=== PATIENT | female | born 1995 | race Caucasian/White ===

== ENCOUNTER 2018-07-30 11:27 | Emergency (ER) | payer SELFPAY ==
[2018-07-30 12:10] LABS: ABSOLUTE EOSINOPHILS # (AUTO) 0.1 10^3/uL (0.0-0.6); ABSOLUTE LYMPHOCYTES (AUTO) 2.7 10^3/uL (0.5-4.7); ABSOLUTE MONOCYTES (AUTO) 0.4 10^3/uL (0.1-1.4); ABSOLUTE NEUT (AUTO) 8.2 10^3/uL (1.7-8.2); BASOPHILS % (AUTO) 0.3 % (0-2); EOSINOPHILS % (AUTO) 0.6 % (0-6); HEMATOCRIT 39.1 % (36.0-47.0); HEMOGLOBIN 13.4 g/dL (12.0-15.5); LYMPHOCYTES % (AUTO) 23.7 % (13-45); MEAN CORPUSCULAR HEMOGLOBIN 28.6 pg (27.0-33.4); MEAN CORPUSCULAR HGB CONC 34.3 g/dL (32.0-36.0); MEAN CORPUSCULAR VOLUME 83 fl (80-97); MONOCYTES % (AUTO) 3.5 % (3-13); PLATELET COUNT 315 10^3/uL (150-450); RED CELL DISTRIBUTION WIDTH 13.2 % (11.5-14.0); SEGMENTED NEUTROPHILS % (AUTO) 71.9 % (42-78); TOTAL CELLS COUNTED % (AUTO) 100 %; WHITE BLOOD COUNT 11.4 10^3/uL (4.0-10.5)
[2018-07-30 12:14] LABS: APPEARANCE,URINE CLOUDY; BILIRUBIN,URINE NEGATIVE (NEGATIVE); COLOR,URINE YELLOW; GLUCOSE, URINE NEGATIVE (NEGATIVE); KETONES,URINE NEGATIVE (NEGATIVE); LEUKOCYTE ESTERASE,URINE SMALL (NEGATIVE); NITRITE,URINE NEGATIVE (NEGATIVE); PROTEIN,URINE NEGATIVE (NEGATIVE); URINE SPECIFIC GRAVITY 1.024; UROBILINOGEN,URINE NEGATIVE mg/dL (<2.0)
--- NOTE | 2018-07-30 12:26 | ER Document Report ---
ED General - General Chief Complaint: Vaginal Bleeding Stated Complaint: VAGINAL BLEEDING,ABDOMINAL PAIN Time Seen by Provider: 07/30/18 11:37 TRAVEL OUTSIDE OF THE [place] IN LAST 30 DAYS: No - HPI Patient complains to provider of: Vaginal bleeding Notes: Patient coming in for evaluation of vaginal bleeding. Patient states that she is a with 3 abortions. Patient states she took 5 home plan to test or positive over the last few days and now started bleeding. Patient denies any trauma denies any fever chills nausea vomiting diarrhea. Patient resting company upon my evaluation denies any abdominal pain or history of ectopic pregnancies. - Related Data Allergies/Adverse Reactions: Penicillins Allergy (Verified 07/30/18 11:29) Past Medical History - Social History Smoking Status: Never Smoker Family History: Reviewed & Not Pertinent Patient has suicidal ideation: No Patient has homicidal ideation: No Renal/ Medical History: Denies: Hx Peritoneal Dialysis Review of Systems - Review of Systems Constitutional: No symptoms reported EENT: No symptoms reported Cardiovascular: No symptoms reported Respiratory: No symptoms reported Gastrointestinal: No symptoms reported Genitourinary: No symptoms reported Female Genitourinary: Vaginal bleeding Musculoskeletal: No symptoms reported Skin: No symptoms reported Hematologic/Lymphatic: No symptoms reported Neurological/Psychological: No symptoms reported -: Yes All other systems reviewed and negative Physical Exam - Vital signs Vitals: Temp Pulse Resp BP Pulse Ox 98.3 F 65 16 118/71 100 07/30/18 11:36 07/30/18 11:36 07/30/18 11:36 07/30/18 11:36 07/30/18 11:36 Interpretation: Normal - General General appearance: Appears well, Alert - HEENT Head: Normocephalic, Atraumatic Eyes: Normal Pupils: PERRL - Respiratory Respiratory status: No respiratory distress Chest status: Nontender Breath sounds: Normal Chest palpation: Normal - Cardiovascular Rhythm: Regular Heart sounds: Normal auscultation Murmur: No - Abdominal Inspection: Normal Distension: No distension Bowel sounds: Normal Tenderness: Nontender Organomegaly: No organomegaly - Back Back: Normal, Nontender - Extremities General upper extremity: Normal inspection, Nontender, Normal color, Normal ROM, Normal temperature General lower extremity: Normal inspection, Nontender, Normal color, Normal ROM, Normal temperature, Normal weight bearing. No: Aureliano's sign - Neurological Neuro grossly intact: Yes Cognition: Normal Orientation: AAOx4 [place] Coma Scale Eye Opening: Spontaneous [place] Coma Scale Verbal: Oriented [place] Coma Scale Motor: Obeys Commands [place] Coma Scale Total: 15 Speech: Normal Motor strength normal: LUE, RUE, LLE, RLE Sensory: Normal - Psychological Associated symptoms: Normal affect, Normal mood - Skin Skin Temperature: Warm Skin Moisture: Dry Skin Color: Normal Course - Re-evaluation Re-evalutation: 07/30/18 15:14 , Turning at 13 no IUP seen concern for possible miscarriage did give the patient instructions about ectopic . Patient is to follow-up in 2 days for repeat blood testing. States understanding will discharge home. - Vital Signs Vital signs: Temp Pulse Resp BP Pulse Ox 98.3 F 65 16 118/71 100 07/30/18 11:36 07/30/18 11:36 07/30/18 11:36 07/30/18 11:36 07/30/18 11:36 - Laboratory Result Diagrams: 07/30/18 11:54 07/30/18 11:54 Laboratory results interpreted by me: 07/30/18 07/30/18 07/30/18 11:54 11:54 11:54 WBC 11.4 H Beta HCG, Quant 13.20 H Urine Blood LARGE H Ur Leukocyte Esterase SMALL H Discharge - Discharge Clinical Impression: Threatened miscarriage Condition: Good Instructions: Threatened Miscarriage ([facility]), Repeat Blood Test ([facility]), Ectopic Precaution ([facility]), [employer], Rhogam ([facility]) Additional Instructions: Your level today is 13. With your bleeding more likely you are having a miscarriage. I would recommend following up and 48 hours for repeat blood testing to make sure that the level is either going down or up. Please continue take Tylenol for pain control he may take Reglan as prescribed for any nausea that she may have. Please observe pelvic rest nothing inside the vagina including toys sex no tampons. Return to the ER symptoms worsen. Prescriptions: Metoclopramide HCl [Reglan] 5 mg PO Q6 #30 tablet Forms: Return to Work, Follow-Up Laboratory Testing
[2018-07-30 12:31] LABS: ALANINE AMINOTRANSFERASE 14 U/L (9-52); ALBUMIN 4.6 g/dL (3.5-5.0); ALKALINE PHOSPHATASE 93 U/L (38-126); ANION GAP 11 (5-19); ASPARTATE AMINO TRANSFERASE 18 U/L (14-36); BILIRUBIN,DIRECT 0.2 mg/dL (0.0-0.4); BILIRUBIN,TOTAL 0.9 mg/dL (0.2-1.3); BLOOD UREA NITROGEN 18 mg/dL (7-20); CALCIUM 9.5 mg/dL (8.4-10.2); CARBON DIOXIDE 26 mmol/L (22-30); CHLORIDE 106 mmol/L (98-107); GLUCOSE 88 mg/dL (75-110); LIPASE 126.4 U/L (23-300); POTASSIUM 4.6 mmol/L (3.6-5.0); SODIUM 143.2 mmol/L (137-145); TOTAL PROTEIN 7.2 g/dL (6.3-8.2)
--- NOTE | 2018-07-30 13:38 | RADIOLOGY REPORT (SQ) ---
EXAM DESCRIPTION: U/S OB TRANSVAG W/DOPPLER COMPLETED DATE/TIME: 07/30/2018 1:23 pm REASON FOR STUDY: +preg bleeding LMP uncertain COMPARISON: None. TECHNIQUE: Transvaginal static and realtime grayscale images acquired of the pelvis. Additional jamie cted spectral and color Doppler images recorded. All images stored on PACs. [facility] CLINICAL DATES: On side LIMITATIONS: None. FINDINGS: No intrauterine gestation is identified. UTERUS: No masses. No anomalies. 8.1 x 6 x 4.8 cm. The endometrium measures 12 mm. CERVICAL LENGTH: Not measured. Closed. RIGHT ADNEXA: Normal ovary with normal vascular flow. 3.7 x 2.2 x 2.1 cm. No adnexal free fluid. No adnexal masses. LEFT ADNEXA: Normal ovary with normal vascular flow. 2.4 x 1.9 x 1.6 cm. No adnexal free fluid. No adnexal masses. FREE FLUID: None. OTHER: No other significant finding. IMPRESSION: There is no intrauterine gestation at this time. Follow-up as clinically indicated. TECHNICAL DOCUMENTATION: JOB ID: [id number] [employer]- All Rights Reserved rev-11/14 Reading location - IP/workstation name: [email or web address]
[2018-07-30 13:49] VITALS: BP 131/82
== END 2018-07-30 14:03 | disposition home or self-care (01) ==
LOC: ER 11:27
DX: O20.0 Threatened abortion (principal); Z3A.00 Weeks of gestation of pregnancy not specified; Z88.0 Allergy status to penicillin
CPT/HCPCS: 99284; 96372; 86900; 86901; 36415; 86850; 84702; 83690; 85025; 80053; 81001; 76817; 93976; J2790

== ENCOUNTER → 2018-08-28 | Outpatient (CLI) | payer OTHER | LOC: OD 12:19 | PROVIDERS: ATTEND Nurse Practitioner Primary Care | DX: O03.9 Complete or unspecified spontaneous abortion without complication (principal) | CPT/HCPCS: 36415; 84702 ==

== ENCOUNTER 2018-11-06 07:06 | Day surgery (SDC) | payer OTHER ==
[~2018-11-06 07:06] MED LIST: DEXAMETHASONE SOD PHOSPHATE INJ 4 MG/1 ML VIAL ONE; FENTANYL CITRATE INJ/PF 100 MCG/2 ML AMPUL ONE; MIDAZOLAM 2 MG/2 ML INJ ONE; ONDANSETRON HCL INJ/PF 4 MG/2 ML SDV ONE; PROPOFOL INJ 200 MG/20 ML VIAL IV ONE
[2018-11-06] MEDS ORDERED: GENTAMICIN SULFATE 80 MG in DEXTROSE 5%-WATER 100 ML IV PRN (07:32)
[2018-11-06 08:00] LABS: AMORPHOUS SEDIMENT,URINE TRACE /HPF; APPEARANCE,URINE CLOUDY; BILIRUBIN,URINE NEGATIVE (NEGATIVE); COLOR,URINE YELLOW; GLUCOSE, URINE NEGATIVE (NEGATIVE); KETONES,URINE NEGATIVE (NEGATIVE); LEUKOCYTE ESTERASE,URINE NEGATIVE (NEGATIVE); NITRITE,URINE NEGATIVE (NEGATIVE); PROTEIN,URINE NEGATIVE (NEGATIVE)
[2018-11-06 09:28] LABS: HEMATOCRIT 36.5 % (36.0-47.0); HEMOGLOBIN 12.6 g/dL (12.0-15.5); MEAN CORPUSCULAR HEMOGLOBIN 28.7 pg (27.0-33.4); MEAN CORPUSCULAR HGB CONC 34.5 g/dL (32.0-36.0); MEAN CORPUSCULAR VOLUME 83 fl (80-97); PLATELET COUNT 211 10^3/uL (150-450); RED BLOOD COUNT 4.38 10^6/uL (3.72-5.28); RED CELL DISTRIBUTION WIDTH 13.2 % (11.5-14.0); WHITE BLOOD COUNT 4.8 10^3/uL (4.0-10.5)
[2018-11-06 09:49] LABS: ALANINE AMINOTRANSFERASE 15 U/L (9-52); ALBUMIN 3.8 g/dL (3.5-5.0); ALKALINE PHOSPHATASE 69 U/L (38-126); ANION GAP 10 (5-19); ASPARTATE AMINO TRANSFERASE 16 U/L (14-36); BILIRUBIN,DIRECT 0.2 mg/dL (0.0-0.4); BILIRUBIN,TOTAL 0.8 mg/dL (0.2-1.3); BLOOD UREA NITROGEN 10 mg/dL (7-20); CALCIUM 9.3 mg/dL (8.4-10.2); CARBON DIOXIDE 23 mmol/L (22-30); CHLORIDE 105 mmol/L (98-107); GLUCOSE 78 mg/dL (75-110); POTASSIUM 4.1 mmol/L (3.6-5.0); SODIUM 137.6 mmol/L (137-145); TOTAL PROTEIN 6.5 g/dL (6.3-8.2)
[2018-11-06] MEDS ORDERED: MORPHINE SULFATE 10 MG/ML INJ IV PRN (10:44)
[2018-11-06] MEDS ORDERED: PROMETHAZINE HCL INJ 25 MG/1 ML VIAL IV PRN ×3 (10:44→11:36)
[2018-11-06] MEDS ORDERED: FENTANYL CITRATE INJ/PF 100 MCG/2 ML AMPUL IV PRN ×3 (10:44)
[2018-11-06] MEDS ORDERED: DIPHENHYDRAMINE HCL 50 MG/ML VIAL IV PRN (10:44)
[2018-11-06] MEDS ORDERED: MEPERIDINE HCL/PF INJ 25 MG/1 ML DISP.SYRIN IV PRN (10:44)
[2018-11-06] MEDS ORDERED: METHYLERGONOVINE MALEATE INJ/PF 0.2 MG/1 ML AMPULE ONE (10:53)
[2018-11-06] MEDS ORDERED: OXYCODONE-ACETAMINOPHEN 5-325 MG TABLET PO PRN ×2 (11:34→11:35)
--- NOTE | 2018-11-06 12:34 | OPERATIVE REPORT E ---
Operative Report NAME: MUKUL WANG : 1995 AGE: 23Y DATE OF SURGERY: 11/06/2018 ROOM: PREOPERATIVE DIAGNOSIS: DEMISE, INEVITABLE AB. POSTOPERATIVE DIAGNOSIS: DEMISE, INEVITABLE AB. OPERATION: SUCTION D AND C. SURGEON: IVA WANG M.D. ANESTHESIA: General. PERTINENT HISTORY AND OPERATIVE FINDINGS: This is a 23-year-old multiparous female, approximately 11 weeks along, with demise. She decided to proceed with a D and E. She was aware of the risks and benefits at the time of surgery. The vagina and vulva were normal. The cervix was normal. The uterus was about 11 weeks size. Adnexa negative. Uterus mid position. ESTIMATED BLOOD LOSS: About 75-100 mL. PROCEDURE: The patient was brought into the OR, placed on the table in a supine position, inducted under general anesthesia. Following this, she was repositioned in dorsal lithotomy position, prepped and draped in a sterile fashion. The bladder was drained with a straight cath of about 100 mL of clear yellow urine. Pelvic under anesthesia was performed. A weighted speculum was then inserted in the vagina. The cervix was grasped on its anterior lip with a single-tooth tenaculum and an Allis. It was dilated to a #11 Hegar dilator, and then using a #10 curved curette, it was gently introduced through the ectocervix, the endocervix and carried up to the top of the fundus. The suction was then enabled and in a rotating movement, the suction was gently drawn back. This was done 3 times to get the tissue out. Having accomplished this, we then went in with a medium sized sharp curette and gently curetted the uterine lining. There was no more tissue to be had. This terminated the procedure. The tenaculum and the Allis were removed from the cervical anterior lip. There was no evidence of active bleeding from this area. She was oozing slightly from the external os. This terminated the procedure. The anesthesia was discontinued. The patient was placed back in a supine position. She was transferred to the recovery room in satisfactory condition. Once again, estimated blood loss was somewhere around 100 mL. DICTATING PHYSICIAN: IVA WANG M.D. [id number] PHY#: [id number] ID: [id number] JOB#: [id number] ACCT: [id number] cc:IVA WANG M.D. >
[2018-11-06 14:42] VITALS: BP 107/71
== END 2018-11-06 14:15 | disposition home or self-care (01) ==
LOC: OROUT 07:06
PROVIDERS: ATTEND Obstetrics & Gynecology
DX: O02.1 Missed abortion (principal)
CPT/HCPCS: 86900; 86901; 36415; 86850; 85027; 81025; 80053; 81001; 88305 ×2; 59820; J2790; J2250; J1100; J3010; J1580; J2210; J2405; J7060; J2704; 1965